=== PATIENT | male | born 1945 | race Caucasian/White ===

== ENCOUNTER → 2017-11-03 | Outpatient (CLI) | payer MEDICARE, OTHER ==
[~2017-11-03] MED LIST: COREG25 M1 PO; COZAAR100 MG PO; FLOVENT 11120 INHALA IH; FLOVENT DISKUS1 DIS2 IH; LO-DOSE ASPIRIN81 M1 PO; NORVASC5 MG PO; PLAVIX75 MG PO; ULTRACET1 TABLET PO; VENTOLIN HFA18 GM IH
== END | disposition home or self-care (01) ==
LOC: CDC 11:46
DX: Z01.810 Encounter for preprocedural cardiovascular examination (principal); L72.9 Follicular cyst of the skin and subcutaneous tissue, unspecified; I49.1 Atrial premature depolarization
CPT/HCPCS: 93000

== ENCOUNTER 2017-11-08 05:26 | Day surgery (SDC) | payer OTHER ==
[~2017-11-08] VITALS: Ht 167.6 cm; Wt 77.1 kg
[2017-11-08 05:50] VITALS: BP 144/65
[2017-11-08 09:18] VITALS: BP 127/60
== END 2017-11-08 10:30 | disposition home or self-care (01) ==
LOC: SDC
DX: L72.3 Sebaceous cyst (principal); J45.909 Unspecified asthma, uncomplicated; I10 Essential (primary) hypertension; Z86.73 Personal history of transient ischemic attack (TIA), and cerebral infarction without residual deficits; Z79.82 Long term (current) use of aspirin; Z79.02 Long term (current) use of antithrombotics/antiplatelets
CPT/HCPCS: 88304; J0690; J1100; J1885; J2250; J2405; J3010; S0020